=== PATIENT | female | born 2000 | race Caucasian/White ===

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

== ENCOUNTER 2020-01-07 20:13 | Emergency (ER) | payer OTHER ==
[~2020-01-07] VITALS: Ht 152.4 cm; Wt 59.0 kg
[2020-01-07 20:15] VITALS: BP 102/71
--- NOTE | 2020-01-07 20:41 | PHYS DOC ---
Past History Past Medical History: No Pertinent History Past Surgical History: No Surgical History Smoking: Non-smoker Alcohol Use: None Drug Use: None General Adult EDM: Chief Complaint: BLOOD IN URINE HPI: HPI: ",,I had some blood in my urine...".. I think I got another urinary tract infection" Patient is a 19 year old female who presents with dysuria and complaints of blood in urine. Patient has had previous urinary tract infections. Patient has subjective complaints of fever. No history of trauma. No history of specific ill contacts. Patient denies any vaginal discharge. Patient denies any history immunosuppression. Patient normally follows with Dr. Coughlin. Patient denies any history of STDs. Review of Systems: Review of Systems: Constitutional: Subjective complaints of fever Eyes: Denies change in visual acuity HENT: Denies nasal congestion or sore throat Respiratory: Denies cough or shortness of breath Cardiovascular: Denies chest pain or edema GI: Denies abdominal pain, nausea, vomiting, bloody stools or diarrhea : History of dysuria and hematuria Musculoskeletal: Denies back pain or joint pain Integument: Denies rash Neurologic: Denies headache, focal weakness or sensory changes Endocrine: Denies polyuria or polydipsia Lymphatic: Denies swollen glands Psychiatric: Denies depression or anxiety Heart Score: Risk Factors: Risk Factors: DM, Current or recent (<one month) smoker, HTN, HLP, family history of CAD, obesity. Risk Scores: Score 0 - 3: 2.5% MACE over next 6 weeks - Discharge Home Score 4 - 6: 20.3% MACE over next 6 weeks - Admit for Clinical Observation Score 7 - 10: 72.7% MACE over next 6 weeks - Early Invasive Strategies Family History: Family History: Noncontributory Current Medications: Current Meds: See nursing for home meds Allergies: Allergies: Allergies Coded Allergies Type Severity Reaction Last Updated Verified No Known Drug Allergies 08/26/17 No Physical Exam: PE: Constitutional: Well developed, well nourished, no acute distress, non-toxic appearance. [] HENT: Normocephalic, atraumatic, bilateral external ears normal, oropharynx moist, no oral exudates, nose normal. [] Eyes: PERRLA, EOMI, conjunctiva normal, no discharge. [] Neck: Normal range of motion, no tenderness, supple, no stridor. [] Cardiovascular:Heart rate regular rhythm, no murmur [] Lungs & Thorax: Bilateral breath sounds clear to auscultation [] Abdomen: Bowel sounds normal, soft, mild suprapubic tenderness, no masses, no pulsatile masses. [] Pt. declines pelvic exam at this time. Skin: Warm, dry, no erythema, no rash. [] Back: No tenderness, some bilateral flank CVA tenderness on percussion Extremities: No tenderness, no cyanosis, no clubbing, ROM intact, no edema. [] Neurologic: Alert and oriented X 3, normal motor function, normal sensory function, no focal deficits noted. [] Psychologic: Affect anxious, judgement normal, mood normal. [] EKG: EKG: [] Radiology/Procedures: Radiology/Procedures: [] Course & Med Decision Making: Course & Med Decision Making Pertinent Labs and Imaging studies reviewed. (See chart for details) Patient take Bactrim DS twice a day. Patient follow-up urine cultures. Patient push vitamin C drinks. Patient take Tylenol and ibuprofen for pain. Patient expect red urine with the use of Pyridium tonight. Must follow-up. Patient to take Diflucan after completing antibiotics 100 mg x 3 days. Recommend full urology work-up because of the hematuria and recurrent urinary tract infections. Follow-up with primary care. Return if any concerns. Impression": 1. UTI 2. Pyelonephrosis [] Jazmín Disclaimer: Jazmín Disclaimer: This electronic medical record was generated, in whole or in part, using a voice recognition dictation system. Departure Departure: Disposition: HOME/RESIDENCE PRIOR TO ADM Condition: STABLE Referrals: JOEY COUGHLIN MD (PCP) Scripts Fluconazole (DIFLUCAN) 100 Mg Tablet 100 MG PO DAILY for take after antibiotic for 3 Days, #3 TAB Prov: ABHIJEET LEWIS MD 01/07/20 Sulfamethoxazole/Trimethoprim (BACTRIM DS TABLET) 1 Each Tablet 1 TAB PO BID for pyleo for 10 Days, #20 TAB 0 Refills Prov: ABHIJEET LEWIS MD 01/07/20 Justification of Admission: Justification of Admission: Justification of Admission Dx: N/A Dragon Disclaimer This chart was dictated in whole or in part using Voice Recognition software in a busy, high-work load, and often noisy Emergency Department environment. It may contain unintended and wholly unrecognized errors or omissions. Dragon Disclaimer This chart was dictated in whole or in part using Voice Recognition software in a busy, high-work load, and often noisy Emergency Department environment. It may contain unintended and wholly unrecognized errors or omissions. ABHIJEET LEWIS MD Jan 07, 2020 20:41
[2020-01-07 21:03] LABS: BILIRUBIN,URINE NEG (NEG); CLARITY,URINE CLOUDY; COLOR,URINE YELLOW; GLUCOSE,URINE NEG (NEG)
[2020-01-07 21:04] LABS: BACTERIA,URINE FEW /HPF (0-FEW); NITRITE,URINE NEG (NEG); RBC,URINE >40 /HPF (0-2); SQUAMOUS EPITHELIAL CELL,UR FEW /LPF; UROBILINOGEN,URINE 0.2 mg/dL (0.2 mg/dL); WBC,URINE >40 /HPF (0-4); YEAST,URINE PRESENT /HPF
[2020-01-07 21:05] LABS: BARBITURATES NEG (NEG); BENZODIAZEPINES NEG (NEG); CANNABINOIDS POS (NEG); COCAINE NEG (NEG); METHADONE NEG (NEG); OPIATES NEG (NEG); PHENCYCLIDINE NEG (NEG)
[2020-01-07 21:06] LABS: AMPHETAMINE/METHAMPHETAMINE NEG (NEG)
[2020-01-07] MEDS ORDERED: SMZ/TMP 800/160MG TABLET. PO ONE (21:30)
[2020-01-07] MEDS ORDERED: cefTRIAXone IM 1 GM VIAL IM ONE (21:30)
[2020-01-07] MEDS ORDERED: SULF1TAB24 PO (21:34)
[2020-01-07] MEDS ORDERED: PHENAZOPYRIDINE 200 MG TABLET. PO ONE (21:45)
[2020-01-07] MEDS ORDERED: FLUC100T7 PO (21:48)
[2020-01-07] MEDS ORDERED: ONDANSETRON ODT 4 MG TAB.RAPDIS ONE (22:35)
[2020-01-07] MEDS ORDERED: ONDANSETRON 4MG ODT 4TABLET STARTPACK. PO ONE (22:45)
[2020-01-07] MEDS ORDERED: ONDANSETRON ODT 4 MG TAB.RAPDIS PO ONE (22:45)
== END 2020-01-07 22:40 | disposition home or self-care (01) ==
LOC: ER 20:13
DX: N11.1 Chronic obstructive pyelonephritis (principal); N39.0 Urinary tract infection, site not specified; Z87.442 Personal history of urinary calculi
CPT/HCPCS: 36415; 80307; 81001; 81025; 87086; 96372; 99284; J0696; Q0162